=== PATIENT | male | born 1930 | race Caucasian/White ===

== ENCOUNTER 2019-08-29 21:38 | Inpatient (IN) | payer MEDICAID, MEDICARE, OTHER ==
[~2019-08-29] VITALS: Ht 180.3 cm; Wt 111.4 kg
[2019-08-29 22:23] LABS: BASOPHILS # (AUTO) 0.1 X10'3 (0-0.2); BASOPHILS % (AUTO) 0.6 % (0-1); EOSINOPHILS # (AUTO) 0.2 X10'3 (0-0.9); EOSINOPHILS % (AUTO) 1.8 % (0-6); HEMATOCRIT 36.8 % (42.0-52.0); HEMOGLOBIN 12.2 g/dl (14.0-17.9); LYMPHOCYTES # (AUTO) 1.6 X10'3 (1.1-4.8); LYMPHOCYTES % (AUTO) 14.3 % (21-51); MEAN CORPUSCULAR HEMOGLOBIN 30.9 PG (27.0-31.0); MEAN CORPUSCULAR HGB CONC 33.1 g/dL (33.0-36.5); MEAN CORPUSCULAR VOLUME 93.4 FL (78-98); MEAN PLATELET VOLUME 9.8 FL (7.4-10.4); MONOCYTES # (AUTO) 0.9 X10'3 (0-0.9); MONOCYTES % (AUTO) 7.7 % (2-12); NEUTROPHILS # (AUTO) 8.7 X10'3 (1.8-7.7); NEUTROPHILS % (AUTO) 75.6 % (42-75); PLATELET COUNT 193 X10'3 (140-440); RED BLOOD COUNT 3.94 X10'6 (4.70-6.10); WHITE BLOOD COUNT 11.4 X10'3 (4.5-11.0)
[2019-08-29 22:38] LABS: ALANINE AMINOTRANSFERASE 18 U/L (12-78); ALBUMIN 3.8 G/DL (3.4-5.0); ALKALINE PHOSPHATASE 80 IU/L (46-116); ANION GAP 9 (8-16); ASPARTATE AMINO TRANSFERASE 21 U/L (10-37); BILIRUBIN,TOTAL 1.2 MG/DL (0.1-1.0); BLOOD UREA NITROGEN 37 MG/DL (7-18); BUN/CREATININE RATIO 18.3 (5.4-32.0); CALCIUM 9.2 MG/DL (8.5-10.1); CHLORIDE 103 MMOL/L (99-107); CREATININE 2.02 MG/DL (0.60-1.10); GLUCOSE 127 MG/DL (70-104); POTASSIUM 4.4 MMOL/L (3.5-5.1); SODIUM 139 MMOL/L (135-145); TOTAL PROTEIN 7.6 G/DL (6.4-8.2); eGFR 31 ML/MIN
[2019-08-29 22:40] LABS: TROPONIN I < 0.04 NG/ML (0.0-0.05)
[2019-08-29] MEDS ORDERED: fentaNYL/PF 50MCG/1 ML 2ML syringe IV ONE (23:20)
[2019-08-29] MEDS ORDERED: ondansetron/PF 4mg/2ml inj IV ONE (23:20)
--- NOTE | 2019-08-29 23:20 | NUR ---
received report from [facility], had opportunity to ask questions, awaiting pt arrival to unit. Addendum: 08/30/19 at 0621 by Casimiro Cassidy RN DISREGARD THIS ENTRY: this was misplaced and is for another pt.
--- NOTE | 2019-08-30 | NUR ---
Notified Dr. Setinberg about pt positive orthostatics. No new orders at this time. Will continue to monitor. Addendum: 08/31/19 at 0545 by Ifeanyi Armstrong RN amend date to 06/30
[2019-08-30] MEDS ORDERED: LEVO50TA8 PO (00:32)
[2019-08-30] MEDS ORDERED: FLO0.4C PO (00:32)
[2019-08-30] MEDS ORDERED: LIDOcaine 5% patch TP PRN (01:40)
[2019-08-30] MEDS ORDERED: acetaminophen 325mg tablet PO PRN (01:50)
[2019-08-30] MEDS ORDERED: magnesium hydroxide 30ml (MOM) UD suspension PO PRN (01:50)
[2019-08-30] MEDS ORDERED: mag hydrox/Alum hydrox/simeth 30ml oral suspension PO PRN (01:50)
[2019-08-30] MEDS ORDERED: ondansetron/PF 4mg/2ml inj IV PRN (01:50)
--- NOTE | 2019-08-30 02:40 | NUR ---
received pt report from Ana Paula Cota RN ER, had opportunity to ask questions, awaiting pt arrival to unit.
[2019-08-30 03:00] VITALS: BP 140/109
[2019-08-30 06:00] VITALS: BP 154/64
--- NOTE | 2019-08-30 06:17 | NUR ---
Patient in room PCU 3028. I have received report from Robert RN and had the opportunity to ask questions and assume patient care.
--- NOTE | 2019-08-30 06:19 | NUR ---
Problems reprioritized. Patient report given, questions answered & plan of care reviewed with Pretty Bundy RN.
[2019-08-30] MEDS: levoTHYROXINE 25mcg tablet PO SCH (08:42)
[2019-08-30] MEDS: tamsulosin 0.4mg capsule PO SCH (08:43)
[2019-08-30] MEDS: heparin, porcine 5000 units/ml vial SQ SCH ×2 (08:44→20:06)
[2019-08-30] MEDS: K and/or MAG REPLACEMENT MC SCH ×2 (10:05→20:00)
[2019-08-30] MEDS ORDERED: magnesium 4gm in 100ml NS 100 ML IV PRN (10:05)
[2019-08-30] MEDS ORDERED: magnesium Cl slow-release 64mg tablet PO PRN (10:05)
[2019-08-30] MEDS ORDERED: potassium CL 10mEq/100ml bag 100 ML IV PRN (10:05)
[2019-08-30] MEDS ORDERED: potassium Cl 20 mEq SR tablet PO PRN ×2 (10:05)
[2019-08-30] MEDS: normal saline 1000ml 1,000 ML IV SCH (10:10)
[2019-08-30 11:00] VITALS: BP 132/60
[2019-08-30 15:00] VITALS: BP 152/59
[2019-08-30] MEDS: morphine 2 MG/ML inj. syringe IV PRN (16:07)
--- NOTE | 2019-08-30 16:10 | NUR ---
Pain control needs met for rib discomfort.
[2019-08-30 19:00] VITALS: BP 122/58
[2019-08-30] MEDS: HYDROcodone/acetaminophen 10/325mg tab PO PRN (19:28)
[2019-08-30 23:00] VITALS: BP 112/55
[2019-08-31] MEDS: normal saline 1000ml 1,000 ML IV SCH ×2 (00:10→12:50)
[2019-08-31 03:00] VITALS: BP 122/58
[2019-08-31] MEDS: morphine 2 MG/ML inj. syringe IV PRN (05:57)
[2019-08-31] MEDS: HYDROcodone/acetaminophen 10/325mg tab PO PRN (06:30)
[2019-08-31] MEDS: levoTHYROXINE 25mcg tablet PO SCH ×2 (06:30→08:58)
--- NOTE | 2019-08-31 06:32 | NUR ---
Problems reprioritized. Patient report given, questions answered & plan of care reviewed with Kelly CRANE. Addendum: 08/31/19 at 0634 by Ifeanyi Armstrong RN Vivian CRANE
--- NOTE | 2019-08-31 06:41 | NUR ---
Patient in room PCU 3028. I have received report from Eric CRANE and had the opportunity to ask questions and assume patient care. Patient awake and oriented at this time, complaining of rib pain and stated he has had some sputum production that he has been using his suction for. Nightshift RN is giving pain medication and DNR band is being placed at this time. Physical therapy is going to try and work with the patient before breakfast, will continue to monitor.
[2019-08-31 06:42] LABS: BASOPHILS # (AUTO) 0.1 X10'3 (0-0.2); BASOPHILS % (AUTO) 0.8 % (0-1); EOSINOPHILS # (AUTO) 0.1 X10'3 (0-0.9); EOSINOPHILS % (AUTO) 1.6 % (0-6); HEMATOCRIT 34.3 % (42.0-52.0); HEMOGLOBIN 11.4 g/dl (14.0-17.9); LYMPHOCYTES # (AUTO) 0.5 X10'3 (1.1-4.8); LYMPHOCYTES % (AUTO) 5.8 % (21-51); MEAN CORPUSCULAR HEMOGLOBIN 31.4 PG (27.0-31.0); MEAN CORPUSCULAR HGB CONC 33.3 g/dL (33.0-36.5); MEAN CORPUSCULAR VOLUME 94.2 FL (78-98); MEAN PLATELET VOLUME 10.1 FL (7.4-10.4); MONOCYTES # (AUTO) 0.8 X10'3 (0-0.9); MONOCYTES % (AUTO) 9.1 % (2-12); NEUTROPHILS # (AUTO) 7.2 X10'3 (1.8-7.7); NEUTROPHILS % (AUTO) 82.7 % (42-75); PLATELET COUNT 178 X10'3 (140-440); RED BLOOD COUNT 3.64 X10'6 (4.70-6.10); WHITE BLOOD COUNT 8.7 X10'3 (4.5-11.0)
[2019-08-31 07:00] VITALS: BP 120/53
[2019-08-31 07:26] LABS: ALANINE AMINOTRANSFERASE 15 U/L (12-78); ALBUMIN/GLOBULIN RATIO 0.8 (1.1-1.5); ALKALINE PHOSPHATASE 67 IU/L (46-116); ANION GAP 8 (8-16); ASPARTATE AMINO TRANSFERASE 20 U/L (10-37); BILIRUBIN,TOTAL 0.8 MG/DL (0.1-1.0); BLOOD UREA NITROGEN 38 MG/DL (7-18); BUN/CREATININE RATIO 25.2 (5.4-32.0); CALCIUM 8.7 MG/DL (8.5-10.1); CHLORIDE 108 MMOL/L (99-107); CREATININE 1.51 MG/DL (0.60-1.10); GLUCOSE 109 MG/DL (70-104); MAGNESIUM 1.8 MG/DL (1.5-2.4); PHOSPHORUS 3.2 MG/DL (2.3-4.5); POTASSIUM 4.3 MMOL/L (3.5-5.1); SODIUM 141 MMOL/L (135-145); TOTAL PROTEIN 6.6 G/DL (6.4-8.2); eGFR 44 ML/MIN
[2019-08-31] MEDS: K and/or MAG REPLACEMENT MC SCH ×2 (08:00→20:00)
[2019-08-31] MEDS: tamsulosin 0.4mg capsule PO SCH (08:58)
[2019-08-31] MEDS: heparin, porcine 5000 units/ml vial SQ SCH ×2 (08:59→19:11)
[2019-08-31 11:00] VITALS: BP 112/29
--- NOTE | 2019-08-31 12:17 | NUR ---
Spoke with Dr. Colon at bedside, no new orders obtained. Instructed to tell SAMARIA that the patient will most likely be discharged tomorrow. Also gave Dr. Colon the POA Stacey's phone number so that she can call her. Instructed that the patient should not go home alone and patient stated he did not want to go to a rehab. Called to update Stacey the POA, she will be coming to [facility] to help with the patient's care after discharge.
--- NOTE | 2019-08-31 14:03 | NUR ---
PAGER ID: [phone] MESSAGE: Freddy [id number]. Pt's POA would like to try and get home health for the patient after discharge, I will mention it to case management. Thanks Vivian [phone]
[2019-08-31 15:00] VITALS: BP 133/57
--- NOTE | 2019-08-31 16:45 | NUR ---
Patient had scab on the back of the right ear which he has been scratching and the oxygen tubing has been irritating and has now opened up and looks to have drainage. Took picture and placed in chart and also dressed with opitfoam as well as covered the o2 tubing with foam tape to prevent scratching and rubbing. Will put in wound care consult and monitor.
--- NOTE | 2019-08-31 17:04 | NUR ---
PAGER ID: [phone] MESSAGE: Freddy [id number]. Pt has difficulty coughing up secretions can I order a flutter valve for him? Thanks Vivian [phone]
--- NOTE | 2019-08-31 18:28 | NUR ---
Problems reprioritized. Patient report given, questions answered & plan of care reviewed with Dianne CRANE. Patient stable at transfer of care.
--- NOTE | 2019-08-31 18:30 | NUR ---
Patient in room PCU 3028. I have received report from Vivian CRANE and had the opportunity to ask questions and assume patient care.
[2019-08-31 22:00] VITALS: BP 132/58
[2019-09-01] MEDS: normal saline 1000ml 1,000 ML IV SCH (01:50)
[2019-09-01 02:30] VITALS: BP 128/52
[2019-09-01 05:54] LABS: BASOPHILS # (AUTO) 0.1 X10'3 (0-0.2); BASOPHILS % (AUTO) 0.6 % (0-1); EOSINOPHILS # (AUTO) 0.2 X10'3 (0-0.9); EOSINOPHILS % (AUTO) 2.7 % (0-6); LYMPHOCYTES # (AUTO) 1.5 X10'3 (1.1-4.8); MEAN CORPUSCULAR HEMOGLOBIN 31.3 PG (27.0-31.0); MEAN CORPUSCULAR HGB CONC 33.4 g/dL (33.0-36.5); MEAN CORPUSCULAR VOLUME 93.7 FL (78-98); MEAN PLATELET VOLUME 10.2 FL (7.4-10.4); MONOCYTES # (AUTO) 0.9 X10'3 (0-0.9); MONOCYTES % (AUTO) 10.2 % (2-12); NEUTROPHILS # (AUTO) 5.7 X10'3 (1.8-7.7); NEUTROPHILS % (AUTO) 68.5 % (42-75); PLATELET COUNT 214 X10'3 (140-440); RED BLOOD COUNT 3.84 X10'6 (4.70-6.10); RED CELL DISTRIBUTION WIDTH 13.7 % (11.5-14.5); WHITE BLOOD COUNT 8.3 X10'3 (4.5-11.0)
[2019-09-01 06:07] LABS: ALANINE AMINOTRANSFERASE 17 U/L (12-78); ALBUMIN 3.3 G/DL (3.4-5.0); ALBUMIN/GLOBULIN RATIO 0.9 (1.1-1.5); ALKALINE PHOSPHATASE 76 IU/L (46-116); ANION GAP 9 (8-16); ASPARTATE AMINO TRANSFERASE 25 U/L (10-37); BILIRUBIN,TOTAL 0.8 MG/DL (0.1-1.0); BLOOD UREA NITROGEN 38 MG/DL (7-18); BUN/CREATININE RATIO 26.8 (5.4-32.0); CHLORIDE 106 MMOL/L (99-107); CREATININE 1.42 MG/DL (0.60-1.10); GLUCOSE 123 MG/DL (70-104); PHOSPHORUS 2.4 MG/DL (2.3-4.5); POTASSIUM 4.2 MMOL/L (3.5-5.1); SODIUM 140 MMOL/L (135-145); TOTAL CARBON DIOXIDE 25.5 MMOL/L (24-32); TOTAL PROTEIN 7.1 G/DL (6.4-8.2); eGFR 47 ML/MIN
--- NOTE | 2019-09-01 06:25 | NUR ---
Problems reprioritized. Patient report given, questions answered & plan of care reviewed with Sarah CRANE.
[2019-09-01 07:03] VITALS: BP 146/55
[2019-09-01] MEDS: heparin, porcine 5000 units/ml vial SQ SCH (08:00)
[2019-09-01] MEDS: tamsulosin 0.4mg capsule PO SCH (08:00)
[2019-09-01] MEDS: K and/or MAG REPLACEMENT MC SCH (08:00)
[2019-09-01] MEDS: levoTHYROXINE 25mcg tablet PO SCH (08:01)
--- NOTE | 2019-09-01 09:30 | NUR ---
Patient insisting that he will be discharged. I informed the patient that the DrCristina has to see him before they will make the decision to discharge him or keep him for continued monitoring and care. Patient is becoming increasingly loud and demanding. Attempted to calm the patient but he continues to become loud. Will continue to monitor.
--- NOTE | 2019-09-01 11:44 | NUR ---
Notified PAGER ID: [phone] MESSAGE: [id number] Timothy Mitchell. Patient would like to be discharged. Do you have plans to discharge? thank you ROYCE moran ext [phone]
--- NOTE | 2019-09-01 11:56 | NUR ---
Patient becoming very agitated regarding being told he will be discharged today but he has yet to be discharged. He refuses to have PIV. IV discontinued. Tele discontinued. aware. PAGER ID: [phone] MESSAGE: [id number]. Timothy Mitchell. FY Patient is refusing to have a PIV. Thank you ROYCE Smith ext [phone]
--- NOTE | 2019-09-01 12:30 | NUR ---
MD at bedside. patient cursing at dr for educating patient on his thoughts on discharging him. Patient became very angry.
--- NOTE | 2019-09-01 12:59 | NUR ---
Patient stable for discharge per MD orders. All discharge instructions and education reviewed with patient and all questions answered. IV discontinued, dressing CDI. tele monitor DCed. All known belongings sent with patient. patient wheeled in wheel chair to [facility] driven by family member.
== END 2019-09-01 13:00 | disposition home or self-care (01) | DRG 183 ==
LOC: ER 21:38 → ED HOLD 08-30 01:48 → PCU 3S 08-30 02:45
PROVIDERS: ADMIT Internal Medicine; ATTEND Family Medicine
DX: S22.42XA Multiple fractures of ribs, left side, initial encounter for closed fracture (principal); N17.0 Acute kidney failure with tubular necrosis; I50.20 Unspecified systolic (congestive) heart failure; I42.9 Cardiomyopathy, unspecified; E03.9 Hypothyroidism, unspecified; E86.1 Hypovolemia; I48.91 Unspecified atrial fibrillation; W18.39XA Other fall on same level, initial encounter; I49.3 Ventricular premature depolarization; Z96.653 Presence of artificial knee joint, bilateral; Z60.2 Problems related to living alone; N40.0 Benign prostatic hyperplasia without lower urinary tract symptoms; Z66 Do not resuscitate; Z87.891 Personal history of nicotine dependence; Z91.81 History of falling; Y93.89 Activity, other specified; Y92.89 Other specified places as the place of occurrence of the external cause; Y99.8 Other external cause status; Z79.899 Other long term (current) drug therapy; Z91.19 Patient's noncompliance with other medical treatment and regimen
CPT/HCPCS: 36415; 71045; 71250; 80053; 83605; 83735; 83880; 84100; 84145; 84443; 84484; 85025; 87040; 87081; 93005; 93306; 94667; 96374; 96375; 97110; 97116; 97162; 97530; 99285; G0378; J1644; J2270; J2405; J3010; J7030